=== PATIENT | male | born 1930 | race Caucasian/White ===

== ENCOUNTER 2019-10-03 17:45 | Emergency (ER) | payer MEDICARE ==
--- OUTSIDE RECORDS SUMMARY | 2019-10-03 17:51 | XMS REPORT | Continuity of Care Document ---
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 Onset: 04/11/2019 H/O: gout Pau Hampton NP Onset: 05/09/2019 Social History Type Date Description Comments Sex Unknown Tobacco Use Start: Unknown Never Smoked Cigarettes Smoking Status Reviewed: 09/21/19 Never Smoked Cigarettes ETOH Use Rarely consumes alcohol Tobacco Use Start: Unknown Patient has never smoked Recreational Drug Use Denies Drug Use Exercise Type/Frequency Exercises regularly Physical therapy twice a week, and does exercises at home Allergies, Adverse Reactions, Alerts Description No Known Drug Allergies Medications Active Medications SIG Qnty Indications Ordering Date Provider Shingrix inject per 1units Z23 Valeri Sevilla MD 03/20/2019 50mcg/0.5ML protocol Suspension Rec Metamucil 1 tablespoon daily Unknown 28.3% with 8 ounces Powder liquid Lisinopril-Hydrochlo 2 by mouth every 180tabs Valeri Sevilla MD rothiazide day 20-12.5mg Tablets Allopurinol 1 by mouth every 90tabs Valeri Sevilla MD 100mg day Tablets [facility] Vitamin B12 1 by mouth every Unknown day 1000mcg Tablets Vitamin D3 Gummies take one Unknown Adult capsule/tablet 1000Unit daily by mouth Chewtabs Fibercon one to two tablets Unknown 625mg daily Tablets Immunizations Description No Information Available Vital Signs Date Vital Result Comment 09/21/2019 1:00pm Height 68 inches 5'8" Weight 183.25 lb Heart Rate 78 /min BP Systolic 158 mmHg manual BP Diastolic 98 mmHg manual BP Systolic Sitting 161 mmHg machine BP Diastolic Sitting 96 mmHg machine Body Temperature 97.5 F O2 % BldC Oximetry 95 % BMI (Body Mass Index) 27.9 kg/m2 06/28/2019 4:06pm Height 68 inches 5'8" Weight 178.00 lb Heart Rate 82 /min BP Systolic 138 mmHg BP Diastolic 79 mmHg O2 % BldC Oximetry 96 % BMI (Body Mass Index) 27.1 kg/m2 Results Description No Information Available Procedures Date Code Description Status 06/29/2019 583560416 Diabetic Retinal Eye Exam Completed 05/30/2019 46745 Dest Lesion Each Addl Lesion 2 Through 14 Each Completed 05/30/2019 93802 Destruction ALL Benign Or Premalignant Lesion (Other Completed Than [place] 05/30/2019 69936 Tangential Biopsy Of Skin, Single Lesion Completed 04/11/2019 68656 EKG Tracing & Interpretation Completed 10/16/2010 88205829 Colonoscopy Completed Medical Devices Description No Information Available Encounters Type Date Location Provider Dx Diagnosis Office Visit 06/28/2019 [facility] Gastroenterology Pau Vargas K58.1 Irritable bowel 4:00p EMILY Hampton syndrome with constipation Office Visit 05/30/2019 [facility] Dermatology Jaja Garg, L82.1 Other seborrheic 2:00p keratosis L98.9 Disorder of the skin and subcutaneous tissue, unspecified L57.0 Actinic keratosis Office 05/23/2019 [facility] Gastroenterology Pau K59.09 Other Visit 4:00p Alicia constipation EMILY Hampton Office 05/09/2019 [facility] Gastroentercecile Mai 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 unspecified Office 04/11/2019 [facility] Internal Medicine Jennifer R19.7 Diarrhea, Visit 2:00p - Raysa Donis M.D. 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 04/11/2019 R19.7 Diarrhea, unspecified Jennifer Donis M.D. 04/11/2019 I49.9 Cardiac arrhythmia, unspecified Jennifer Donis M.D. Plan of Treatment Future Appointment(s):11/03/2019 1:20 pm - Valeri Sevilla MD at [facility] Internal Medicine - [facility]09/21/2019 - Valeri Sevilla MDI10 Essential (primary) hypertensionComments:Your BP is running high todayPlease take it at home atleast 2-3 times a weekStop taking BOOSTFollow up:F/U 6 weeks Bring home BP readings And if you buy a BP machine bring that as wellR53.1 WeaknessNew Therapy:Physical Therapy Functional Status Description No Information Available Mental Status Description No Information Available Referrals Refer to Dr Reason for Referral Status Appt Date Pau Hampton NP Sent 05/09/[address] [place] [address] [phone] Jaja Garg MD Closed [address] [facility] [facility], [place] [address] [phone]
[2019-10-03] MEDS ORDERED: Acetaminophen TAB* 325 MG PO ONE (19:51)
--- NOTE | 2019-10-03 19:57 | UC ---
Minor Trauma HPI - HPI Summary HPI Summary: 89-year-old male presents with family members with complaints of left shoulder, left hip, and left knee pain after he accidentally tripped and fell this afternoon landing on a hardwood floor. States he reached his left arm out to try to catch himself straining the left shoulder. Localizes pain to the posterior and anterior shoulder. States pain worsens with movement and causes some limitation due to his range of motion. Reports he has been able to walk and ambulate without difficulty since the injury and states the hip and knee pain are minimal. No decreased range of motion to the hip and knee are noted. States he did not hit his head or lose consciousness. Denies headache, neck pain, chest pain, difficulty breathing, abdominal pain, or any other injury. - History of Current Complaint Chief Complaint: UCUpperExtremity Stated Complaint: SHOULDER INJURY Time Seen by Provider: 10/03/19 19:44 Hx Obtained From: Patient Pain Intensity: 0 - Allergies/Home Medications Allergies/Adverse Reactions: Allergies Allergy/AdvReac Type Severity Reaction Status Date / Time No Known Allergies Allergy Verified 10/03/19 18:58 Home Medications: Home Medications Allopurinol TAB* [Zyloprim 100 MG TAB*] 100 mg PO DAILY 10/03/19 [History Confirmed 10/03/19] Lisinopril/Hydrochlorothiazide [Lisinopril-Hctz 20-12.5 mg Tab] 2 tab PO DAILY 10/03/19 [History Confirmed 10/03/19] PMH/Surg Hx/FS Hx/Imm Hx Cardiovascular History: Hypertension - Surgical History Surgical History: Yes Surgery Procedure, Year, and Place: bilateral hip replacement. left knee replacement - Family History Known Family History: Positive: Non-Contributory - Social History Occupation: Retired Lives: With Family Alcohol Use: Rare Substance Use Type: None Smoking Status (MU): Never Smoked Tobacco Review of Systems All Other Systems Reviewed And Are Negative: Yes Constitutional: Positive: Negative Skin: Negative: Bruising Respiratory: Negative: Shortness Of Breath Cardiovascular: Negative: Palpitations, Chest Pain Gastrointestinal: Negative: Abdominal Pain, Vomiting, Nausea Genitourinary: Positive: Negative Motor: Negative: Weakness Neurovascular: Negative: Decreased Sensation Musculoskeletal: Positive: Other: - See HPI Neurological/Mental Status: Negative: Headache, Weakness, Paresthesia, Numbness Physical Exam - Summary Physical Exam Summary: GENERAL APPEARANCE: Alert, pleasant, and cooperative older adult male who appears to be in no acute distress. HEAD: Atraumatic. Normocephalic. NECK: Neck supple, non-tender. CARDIAC: Normal S1 and S2. No S3, S4 or murmurs. Rhythm is regular. There is no peripheral edema, cyanosis or pallor. Extremities are warm and well perfused. Capillary refill is less than 2 seconds. Peripheral pulses intact. LUNGS: Clear to auscultation without rales, rhonchi, wheezing or diminished breath sounds. ABDOMEN: Positive bowel sounds. Soft, nondistended, nontender. No guarding or rebound. No masses or hepatosplenomegally. MUSKULOSKELETAL: Normal muscular development for age. Normal gait for age. BACK: No spinal deformity or tenderness, decreased range of motion or muscular spasm. EXTREMITIES: Tenderness to the posterior left shoulder and anterior left should over the AC joint without gross deformity. ROM limited by pain. Mild tenderness to the left hip without gross deformity. Full ROM. Left knee non-tender with full ROM. NEUROLOGICAL: Strength and sensation symmetric and intact throughout. SKIN: Skin normal color, texture and turgor for age with no lesions or eruptions. Triage Information Reviewed: Yes Vital Signs: Initial Vital Signs Temp 98.9 F 10/03/19 18:51 Pulse 76 10/03/19 18:51 Resp 16 10/03/19 18:51 BP 162/93 10/03/19 18:51 Pulse Ox 99 10/03/19 18:51 Vital Signs Reviewed: Yes Minor Trauma Course/Dx - Course Course Of Treatment: 89-year-old male presents with family members with complaints of left shoulder, left hip, and left knee pain after he accidentally tripped and fell this afternoon landing on a hardwood floor. States he reached his left arm out to try to catch himself straining the left shoulder. Localizes pain to the posterior and anterior shoulder. States pain worsens with movement and causes some limitation due to his range of motion. Reports he has been able to walk and ambulate without difficulty since the injury and states the hip and knee pain are minimal. No decreased range of motion to the hip and knee are noted. States he did not hit his head or lose consciousness. Denies headache, neck pain, chest pain, difficulty breathing, abdominal pain, or any other injury. - Differential Dx/Diagnosis Differential Diagnosis/HQI/PQRI: Contusion(s), Fracture, Dislocation, Sprain, Strain Provider Diagnosis: Injury of left shoulder, Contusion of left hip Discharge ED - Sign-Out/Discharge Documenting (check all that apply): Patient Departure All imaging exams completed and their final reports reviewed: No - Discharge Plan Condition: Stable Disposition: HOME Patient Education Materials: Shoulder Pain (ED), Contusion in Adults (ED) Referrals: Valeri Sevilla MD [Primary Care Provider] - Ying Mcdermott MD [Medical Doctor] - 7 Days (Call for appointment.) Additional Instructions: The shoulder x-ray showed a questionable chip fracture at the distal end of the clavicle that I am unsure if it is related to your current fall. The hip x-ray performed in the clinic today showed no evidence of a fracture. I suspect that you have a contusion (bruise) of the hip. The radiologists will be looking at the x-rays tomorrow and if they see anything that changes her plan of care we will notify you. Rest the shoulder as much as possible. Use the sling that was provided to you for the next 2 days for support. Be sure to remove your arm from the sling every 1-2 hours while awake and performed the gentle range of motion exercises that were demonstrated to you. You will want to continue these exercises even after you stop using the sling. Apply ice to the affected area(s) for 15-20 minutes at least 4 times a day to help with the pain and swelling.. Take acetaminophen (Tylenol) according to directions as needed for pain. Follow up with orthopedic surgery in 7 days. Call for an appointment. Seek immediate medical attention if you have severe pain not managed with pain medication, you lose function of the shoulder/arm, you are unable to walk or bear any weight, develop numbness or tingling in the arm or leg, or have any worsening of symptoms. - Billing Disposition and Condition Condition: STABLE Disposition: Home
[2019-10-03 21:06] VITALS: BP 171/96
--- NOTE | 2019-10-04 11:55 | UC ---
- Progress Note Progress Note: RADIOLOGY REPORT REVIEWED. LEFT HIP REPLACEMENT IN SATISFACTORY POSITION. NO PERIPROSTHETIC FRACTURE IS PRESENT. SHOULDER UNREMARKABLE. I CALLED PT. NAME AND VERIFIED. ADVISED OF XRAY REPORTS. NO CHANGE IN MGMT. F/U ORTHO ADVISED. Course/Dx - Diagnoses Provider Diagnoses: Injury of left shoulder, Contusion of left hip Discharge ED - Sign-Out/Discharge Documenting (check all that apply): Post-Discharge Follow Up All imaging exams completed and their final reports reviewed: Yes - Discharge Plan Condition: Stable Disposition: HOME Patient Education Materials: Contusion in Adults (ED), Shoulder Pain (ED) Referrals: Ying Mcdermott MD [Medical Doctor] - 7 Days (Call for appointment.) Valeri Sevilla MD [Primary Care Provider] - Additional Instructions: The shoulder x-ray showed a questionable chip fracture at the distal end of the clavicle that I am unsure if it is related to your current fall. The hip x-ray performed in the clinic today showed no evidence of a fracture. I suspect that you have a contusion (bruise) of the hip. The radiologists will be looking at the x-rays tomorrow and if they see anything that changes her plan of care we will notify you. Rest the shoulder as much as possible. Use the sling that was provided to you for the next 2 days for support. Be sure to remove your arm from the sling every 1-2 hours while awake and performed the gentle range of motion exercises that were demonstrated to you. You will want to continue these exercises even after you stop using the sling. Apply ice to the affected area(s) for 15-20 minutes at least 4 times a day to help with the pain and swelling.. Take acetaminophen (Tylenol) according to directions as needed for pain. Follow up with orthopedic surgery in 7 days. Call for an appointment. Seek immediate medical attention if you have severe pain not managed with pain medication, you lose function of the shoulder/arm, you are unable to walk or bear any weight, develop numbness or tingling in the arm or leg, or have any worsening of symptoms. - Billing Disposition and Condition Condition: STABLE Disposition: Home
== END 2019-10-03 21:09 | disposition home or self-care (01) ==
LOC: UCEAST 17:45
DX: S49.92XA Unspecified injury of left shoulder and upper arm, initial encounter (principal); S70.02XA Contusion of left hip, initial encounter; I10 Essential (primary) hypertension; Z96.643 Presence of artificial hip joint, bilateral; W01.0XXA Fall on same level from slipping, tripping and stumbling without subsequent striking against object, initial encounter; Y92.9 Unspecified place or not applicable
CPT/HCPCS: 99213; A9270-GY; G0463